=== PATIENT | female | born 1980 | race African-American/Black ===

== ENCOUNTER 2022-09-19 16:07 | Emergency (ER) | payer MEDICAID ==
[~2022-09-19] VITALS: Ht 170.2 cm; Wt 109.1 kg
[2022-09-19] MEDS ORDERED: ACETAMINOPHEN 500 MG TABLET PO ONE (16:45)
[2022-09-19 16:47] LABS: COVID AG,FIA SOURCE NASOPHARYNGEAL
[2022-09-19 17:04] LABS: INFLUENZA TYPE A NEGATIVE FOR TYPE A (NEGATIVE); INFLUENZA TYPE B NEGATIVE FOR TYPE B (NEGATIVE)
[2022-09-19 19:45] LABS: BASOPHILS % (AUTO) 0.2 % (0.0-2.0); EOSINOPHILS % (AUTO) 0.1 % (1.0-6.0); HEMATOCRIT 38.4 % (36-46); HEMOGLOBIN 12.1 g/dL (12.0-16.0); LYMPHOCYTES # (AUTO) 1.9 K/uL (1.0-4.8); LYMPHOCYTES % (AUTO) 8.7 % (22.0-44.0); MEAN CORPUSCULAR HEMOGLOBIN 28.5 pg (26.0-34.0); MEAN CORPUSCULAR HGB CONC 31.5 G/dL (31.0-37.0); MEAN CORPUSCULAR VOLUME 90 fL (80-100); MONOCYTES # (AUTO) 0.8 K/uL (0.1-1.0); MONOCYTES % (AUTO) 3.7 % (2.0-9.0); NEUTROPHILS # (AUTO) 18.8 K/uL (1.8-7.7); PLATELET COUNT (AUTO) 268 K/uL (150-450); RED BLOOD CELL COUNT(AUTO) 4.25 MIL/uL (4.00-5.20); RED CELL DISTRIBUTION WIDTH 13.4 % (11.5-14.5)
[2022-09-19 19:46] LABS: NEUTROPHILS % (AUTO) 87.3 % (40.0-70.0)
[2022-09-19 19:54] LABS: ANION GAP 7 mmol/L (8-16); CALCIUM, TOTAL 9.5 mg/dL (8.8-10.5); CARBON DIOXIDE 26 mmol/L (22-29); CHLORIDE 101 mmol/L (98-107); CREATININE 0.96 mg/dL (0.60-1.30); GLUCOSE,RANDOM 141 mg/dL (70-110); SODIUM SERUM 134 mmol/L (136-145); UREA NITROGEN, BLOOD 8 mg/dL (7-18)
[2022-09-19 19:55] LABS: GLOMERULAR FILTR. RATE CALC > 60 mL/min (>60)
[2022-09-19 20:05] LABS: HCG,QUANTITATIVE < 1 mIU/mL (0-6)
[2022-09-19] MEDS ORDERED: IOHEXOL 350 MG/ML 100 ML VIAL ONE (20:14)
[2022-09-19] MEDS ORDERED: SODIUM CHLORIDE 0.9% 0 ML ONE (20:14)
[2022-09-19] MEDS ORDERED: PENI500T2 PO (21:55)
[2022-09-19] MEDS ORDERED: ACET-3385 PO (21:56)
[2022-09-19] MEDS ORDERED: IBUP-2070 PO (21:56)
[2022-09-19 22:02] VITALS: BP 133/100
== END 2022-09-19 22:06 | disposition home or self-care (01) ==
LOC: EMS 16:29
DX: J02.0 Streptococcal pharyngitis (principal); Z20.822 Contact with and (suspected) exposure to COVID-19
CPT/HCPCS: 80048; 84702; 85025; 87430; 87804; 99283; J7050; Q9967